=== PATIENT | female | born 1990 | race Caucasian/White ===

== ENCOUNTER 2017-10-27 17:35 | Emergency (ER) | payer BC ==
[2017-10-27 17:49] VITALS: BP 132/94
[2017-10-27] MEDS ORDERED: Ketorolac 60 MG/2 ML SDV IM ONE (18:21)
[2017-10-27] MEDS ORDERED: Orphenadrine 100 MG Tab.ER PO ONE (18:21)
--- NOTE | 2017-10-27 18:22 | EDM.PDOC ---
ED HPI GENERAL MEDICAL PROBLEM - General Chief Complaint: Headache Stated Complaint: Headache, neck pain, vision changes Time Seen by Provider: 10/27/17 18:00 Source of Information: Reports: Patient, RN Notes Reviewed History Limitations: Reports: No Limitations - History of Present Illness INITIAL COMMENTS - FREE TEXT/NARRATIVE: 27 year old female presents to the ED with complaints of headache and left sided neck pain for the past couple days. Pain does not improve with Tylenol or Advil. The pain starts in her neck and radiates along the right side of her head. She has no associated photophobia, phonophobia, nausea or vomiting. She has a history of cervical spine stenosis, diagnosed by MRI a few months ago. 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 She has an appointment with Dr. Andre at the end of November to establish care and discuss this. She reports intermittent black spots in her eyes that resolve on their own. She says she sometimes feels off balance and like her right leg is heavy. She is currently not experiencing these symptoms. NO numbness, tingling or weakness. No slurred speech or difficulty swallowing. She has no fever, chills, chest pain, shortness of breath, cough, nausea, vomiting, diarrhea, or abdominal pain. She just finished her LMP. She says her had a vasectomy and there is no chance of . She declines test. She initially presented to the walk-in clinic and was sent here. 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: Other (see below) Other 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: motrin and tylenol Right Headache Pain Score (Numeric/FACES): 5 - Related Data Allergies Allergy/AdvReac Type Severity Reaction Status Date / Time No Known Allergies Allergy Verified 01/13/17 13:28 Home Meds: Home Meds Naproxen 500 mg PO BID #30 tablet 10/27/17 [Rx] Orphenadrine [Norflex] 100 mg PO BID PRN #20 tab.er 10/27/17 [Rx] Past Medical History - Past Health History Medical/Surgical History: Denies Medical/Surgical History HEENT History: Reports: Other (See Below) Other HEENT History: right optic nerve droop Cardiovascular History: Reports: None Respiratory History: Reports: None Gastrointestinal History: Reports: None Genitourinary History: Reports: None 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: , 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 Musculoskeletal History: Reports: None, Other (See Below) Other Musculoskeletal History: spinal stenosis Neurological History: Reports: Other (See Below) Other Neuro History: headaches Psychiatric History: Reports: Anxiety Endocrine/Metabolic History: Reports: None Hematologic History: Reports: None Immunologic History: Reports: None Oncologic (Cancer) History: Reports: None Dermatologic History: Reports: None - Past Surgical History Head Surgeries/Procedures: Reports: None HEENT Surgical History: Reports: Oral Surgery Social & Family History - Family History Family Medical History: Noncontributory - Tobacco Use Smoking Status *Q: Never Smoker Second Hand Smoke Exposure: No - Caffeine Use Caffeine Use: Reports: Coffee, Soda - Alcohol Use Days Per Week of Alcohol Use: 0 - Recreational Drug Use Recreational Drug Use: No Drug Use in Last 12 Months: No ED ROS GENERAL - Review of Systems Review Of Systems: See Below Constitutional: Reports: No Symptoms. Denies: Fever, Chills, Diaphoresis HEENT: Reports: Vision Change. Denies: Ear Pain, Eye Pain, Throat Pain, Vertigo Respiratory: Reports: No Symptoms. Denies: Shortness of Breath Cardiovascular: Reports: No Symptoms. Denies: Chest Pain GI/Abdominal: Reports: No Symptoms. Denies: Abdominal Pain, Diarrhea, Nausea, Vomiting Musculoskeletal: Reports: Neck Pain Neurological: Reports: Headache. Denies: Confusion, Dizziness, Numbness, Tingling, Trouble Speaking, Difficulty Walking, Weakness - Physical Exam Exam: See Below Exam Limited By: No Limitations General Appearance: Alert, WD/WN, No Apparent Distress Eye Exam: Bilateral Eye: EOMI, PERRL Throat/Mouth: Normal Inspection, Normal Oropharynx Head Exam: Atraumatic, Normocephalic. No: Scalp Tenderness Neck: Normal Inspection, Supple, Non-Tender, Full Range of Motion. No: Lymphadenopathy (L), Lymphadenopathy (R), Tender Lateral, Tender Midline, Thyromegaly Respiratory/Chest: No Respiratory Distress, Lungs Clear Cardiovascular: Regular Rate, Rhythm GI/Abdominal: Normal Bowel Sounds, Soft, Non-Tender Neuro Exam (Abbreviated): Alert, Oriented, CN II-XII Intact, Normal Cognition, Normal Gait, No Motor/Sensory Deficits, Other (cerebellar testing intact. ambulates with steady gait. Upper and lower extremity strengths are equal bilaterally. PERRLA. ) Skin Exam: Warm, Dry, Intact Course - Vital Signs Last Recorded V/S: Last Vital Signs Temp 99.2 F 10/27/17 17:47 Pulse 117 H 10/27/17 17:47 Resp 20 10/27/17 17:47 BP 132/94 H 10/27/17 17:47 Pulse Ox 100 10/27/17 17:47 - Orders/Labs/Meds Orders: Active Orders 24 hr Category Date Time Status Head wo Cont [CT] Stat Exams 10/27/17 18:19 Stop Req Meds: Medications Discontinued Medications Generic Name Dose Route Start Last Admin Trade Name Freq PRN Reason Stop Dose Admin Ketorolac Tromethamine 60 mg 10/27/17 18:21 10/27/17 18:27 Toradol IM 10/27/17 18:22 60 mg ONETIME ONE Administration Orphenadrine Citrate 100 mg 10/27/17 18:21 10/27/17 18:28 Norflex PO 10/27/17 18:22 100 mg ONETIME ONE Administration - Re-Assessments/Exams Free Text/Narrative Re-Assessment/Exam: Initial plan was to order CT of head. However, after discussion with Dr. Pickard, he does not feel a CT is indicated and will not be beneficial considering the patient's normal neuro exam. He recommends outpatient MRI as well. Her symptoms are not acute. She has been experiencing these symptoms for a few months. Patient was notified of recommendations and is comfortable with this. I am going to refer her to our medical clinic as we have same and next day appointments available with our PCPs. She is agreeable to this plan and agrees to f/u for MRI and further workup of her symptoms. Will treat for tension headache with Norflex and Naproxyn. Educated on return precautions. Discharge instructions as documented. Departure - Departure Time of Disposition: 18:43 Disposition: Home, Self-Care 01 Condition: Good Clinical Impression: Tension headache - Discharge Information Prescriptions: Naproxen 500 mg PO BID #30 tablet Orphenadrine [Norflex] 100 mg PO BID PRN #20 tab.er PRN Reason: Headache Instructions: Tension Headache, [id number] Forms: ED Department Discharge Additional Instructions: Follow-up in our clinic to establish care and discuss outpatient MRI. Call [phone] to schedule Return to ER with new or worsening symptoms Naproxyn 500mg twice a day with food as needed for headache Norflex 100mg every 12 hours as needed for neck discomfort and tension type headache Follow-up with your eye doctor for a recheck - My Orders Last 24 Hours: My Active Orders 10/27/17 18:19 Head wo Cont [CT] Stat - Assessment/Plan Last 24 Hours: My Active Orders 10/27/17 18:19 Head wo Cont [CT] Stat
== END 2017-10-27 18:53 | disposition home or self-care (01) ==
LOC: JD.ED 17:35 → SUPCPDRO 17:35 → JD.ED 18:53
DX: G44.209 Tension-type headache, unspecified, not intractable (principal)
CPT/HCPCS: 96372; 99284; A9270; J1885

== ENCOUNTER 2018-12-06 08:06 | Day surgery (SDC) | payer BC ==
[2018-12-06] MEDS ORDERED: Sodium Chloride 0.9% 10 ML Syringe FLUSH PRN (08:20)
[2018-12-06] MEDS ORDERED: Lidocaine 1%/Sod Bicarbonate in NS 8.4% 1 ML Syringe IDERM PRN (08:20)
[2018-12-06] MEDS ORDERED: Lactated Ringers 1,000 ML IV SCH (08:30)
[2018-12-06] MEDS ORDERED: Lactated Ringers 1,000 ML ONE (09:12)
[2018-12-06] MEDS ORDERED: Lidocaine 1% 4 ML ONE (09:12)
[2018-12-06] MEDS ORDERED: Rocuronium 50 MG/5 ML Vial ONE (09:12)
[2018-12-06] MEDS ORDERED: Ondansetron 4 MG/2 ML SDV ONE (09:12)
[2018-12-06] MEDS ORDERED: Propofol 200 MG/20 ML SDV ONE (09:12)
[2018-12-06] MEDS ORDERED: fentaNYL 250 MCG/5 ML SDV ONE (09:12)
[2018-12-06] MEDS ORDERED: Midazolam 1 MG/ML 2 ML SDV ONE (09:12)
[2018-12-06] MEDS ORDERED: Bupivacaine 0.5% 30 ML SDV ONE (09:20)
[2018-12-06] MEDS ORDERED: Lidocaine 1% with EPINEPHrine 1:100,000 20 ML MDV ONE (09:20)
[2018-12-06] MEDS ORDERED: Scopolamine 1.5 MG Transdermal Patch TRDERM SCH (09:30)
--- NOTE | 2018-12-06 09:39 | PCM.PREANE ---
Preanesthetic Assessment - Anesthesia/Transfusion/Family Hx Anesthesia History: Prior Anesthesia Without Reaction Type of Anesthesia Reaction: Excessive Nausea/Vomiting Family History of Anesthesia Reaction: No Transfusion History: No Prior Transfusion(s) Intubation History: Unknown - Review of Systems General: No Symptoms Pulmonary: No Symptoms Cardiovascular: Palpitations Gastrointestinal: No Symptoms Neurological: No Symptoms - Physical Assessment NPO Status Date: 12/05/18 NPO Status Time: 22:00 Pulse: 106 O2 Sat by Pulse Oximetry: 98 Respiratory Rate: 16 Blood Pressure: 142/82 Temperature: 37.7 C Vital Signs: Last Vital Signs Temp 37.9 C 12/06/18 08:45 Pulse 106 H 12/06/18 08:45 Resp 16 12/06/18 08:45 BP 142/82 H 12/06/18 08:45 Pulse Ox 98 12/06/18 08:45 Height: 1.6 m Weight: 92.079 kg ASA Class: 2 Mental Status: Alert & Oriented x3 Airway Class: Mallampati = 2 Dentition: Reports: Normal Dentition, Caries Thyro-Mental Finger Breadths: 3 Mouth Opening Finger Breadths: 3 ROM/Head Extension: Full Lungs: Clear to Auscultation, Normal Respiratory Effort Cardiovascular: Regular Rate, Regular Rhythm, No Murmurs - Lab Values: Laboratory Last Values Urine HCG, Qual Negative (NEGATIVE) 12/06/18 08:37 Lab values reviewed and noted and within acceptable ranges to proceed with scheduled procedure. - Allergies Allergies/Adverse Reactions: Allergies Allergy/AdvReac Type Severity Reaction Status Date / Time No Known Allergies Allergy Verified 10/29/18 02:56 - Anesthesia Plan Pre-Op Medication Ordered: None - Acknowledgements Anesthesia Type Planned: General Anesthesia Pt an Appropriate Candidate for the Planned Anesthesia: Yes Alternatives and Risks of Anesthesia Discussed w Pt/Guardian: Yes Pt/Guardian Understands and Agrees with Anesthesia Plan: Yes PreAnesthesia Questionnaire - Past Health History Medical/Surgical History: Denies Medical/Surgical History HEENT History: Reports: Other (See Below) Other HEENT History: Optic nerve drusen Cardiovascular History: Reports: None Respiratory History: Reports: None Gastrointestinal History: Reports: Other (See Below) Other Gastrointestinal History: Abdominal pain, elevated liver enzymes Genitourinary History: Reports: None 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: , 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 , Other (See Below) Other OB/BYN History: Spontaneous vaginal delivery Musculoskeletal History: Reports: Other (See Below) Other Musculoskeletal History: Neck pain, bilateral carpal tunnel syndrome Neurological History: Reports: Headaches, Chronic Other Neuro History: headaches Psychiatric History: Reports: Anxiety Endocrine/Metabolic History: Reports: None Hematologic History: Reports: None Immunologic History: Reports: None Oncologic (Cancer) History: Reports: None Dermatologic History: Reports: None - Infectious Disease History Infectious Disease History: Reports: None - Past Surgical History Head Surgeries/Procedures: Reports: None HEENT Surgical History: Reports: Tonsillectomy Cardiovascular Surgical History: Reports: None Respiratory Surgical History: Reports: None GI Surgical History: Reports: None Female Surgical History: Reports: None Endocrine Surgical History: Reports: None Neurological Surgical History: Reports: None Musculoskeletal Surgical History: Reports: Other (See Below) Other Musculoskeletal Surgeries/Procedures:: Right knee surgery, bilateral carpal tunnel repair Oncologic Surgical History: Reports: None Dermatological Surgical History: Reports: None - SUBSTANCE USE Smoking Status *Q: Never Smoker Recreational Drug Use History: No - HOME MEDS Home Medications: Home Meds . [No Known Home Meds] 10/29/18 [History] - CURRENT (IN HOUSE) MEDS Current Meds: Current Medications Lactated Ringer's (Ringers, Lactated) 1,000 mls @ 125 mls/hr IV ASDIRECTED [facility] Stop: 12/06/18 23:00 Last Admin: 12/06/18 09:05 Dose: 125 mls/hr Ampicillin Sodium/Sulbactam (Sodium 3 gm/ Sodium Chloride) 100 mls @ 200 mls/ hr IV ONETIME ONE Stop: 12/06/18 10:14 Lidocaine/Sodium Bicarbonate (Buffered Lidocaine 1% In Ns 8.4%) 0.25 ml IDERM ONETIME PRN PRN Reason: Prior to IV Start Stop: 12/06/18 18:00 Last Admin: 12/06/18 09:05 Dose: 0.25 ml Scopolamine (Transderm-Scop) 1.5 mg TRDERM ONETIME [facility] Stop: 12/06/18 16:00 Last Admin: 12/06/18 09:30 Dose: 1.5 mg Sodium Chloride (Saline Flush) 10 ml FLUSH ASDIRECTED PRN PRN Reason: Keep Vein Open Stop: 12/06/18 18:00 Discontinued Medications Bupivacaine HCl (Marcaine 0.5%) Confirm Administered Dose 30 ml .ROUTE .ST-MED ONE Stop: 12/06/18 09:21 Fentanyl (Sublimaze) Confirm Administered Dose 250 mcg .ROUTE .[facility]-MED ONE Stop: 12/06/18 09:13 Lidocaine HCl (Xylocaine-Mpf 1%) Confirm Administered Dose 4 mls @ as directed .ROUTE .[facility]-MED ONE Stop: 12/06/18 09:13 Lactated Ringer's (Ringers, Lactated) Confirm Administered Dose 1,000 mls @ as directed .ROUTE .[facility]-MED ONE Stop: 12/06/18 09:13 Lidocaine/Epinephrine (Xylocaine 1% With Epinephrine 1:100,000) Confirm Administered Dose 20 ml .ROUTE .[facility] ONE Stop: 12/06/18 09:21 Midazolam HCl (Versed 1 Mg/Ml) Confirm Administered Dose 2 mg .ROUTE .ST-MED ONE Stop: 12/06/18 09:13 Ondansetron HCl (Zofran) Confirm Administered Dose 4 mg .ROUTE .[facility]-MED ONE Stop: 12/06/18 09:13 Propofol (Diprivan 20 Ml) Confirm Administered Dose 400 mg .ROUTE .ST-MED ONE Stop: 12/06/18 09:13 Rocuronium [place] (Zemuron) Confirm Administered Dose 50 mg .ROUTE .ST-MED ONE Stop: 12/06/18 09:13
[2018-12-06] MEDS ORDERED: Ampicillin/Sulbactam Na 3 GM in Sodium Chloride 0.9% 100 ML IV ONE (09:45)
[2018-12-06] MEDS ORDERED: ceFAZolin 1 GM Vial ONE ×2 (09:56)
[2018-12-06] MEDS ORDERED: diphenhydrAMINE 50 MG/ML SDV ONE (09:57)
[2018-12-06] MEDS ORDERED: Ketorolac 30 MG/ML SDV ONE (09:58)
[2018-12-06] MEDS ORDERED: Dexamethasone 4 MG/ML 5 ML MDV ONE (09:58)
[2018-12-06] MEDS ORDERED: HYDROmorphone 0.5 MG/0.5 ML Syringe ONE (10:07)
[2018-12-06] MEDS ORDERED: Sodium Chloride 0.9% 50 ML SDV ONE ×2 (10:13→10:25)
[2018-12-06] MEDS ORDERED: Iopamidol 612 MG/ML 50 ML SDV ONE (10:13)
[2018-12-06] MEDS ORDERED: Metoclopramide 10 MG/2 ML SDV IV PRN (10:32)
[2018-12-06] MEDS ORDERED: diphenhydrAMINE 50 MG/ML SDV IVPUSH PRN (10:32)
[2018-12-06] MEDS ORDERED: fentaNYL 100 MCG/2 ML SDV IVPUSH PRN (10:32)
[2018-12-06] MEDS ORDERED: HYDROmorphone 0.5 MG/0.5 ML Syringe IVPUSH PRN (10:32)
[2018-12-06] MEDS ORDERED: Haloperidol Lactate 5 MG/ML SDV IVPUSH PRN (10:32)
[2018-12-06] MEDS ORDERED: Ondansetron 4 MG/2 ML SDV IVPUSH PRN (10:32)
[2018-12-06] MEDS ORDERED: fentaNYL 100 MCG/2 ML SDV ONE (10:53)
--- NOTE | 2018-12-06 11:42 | PCM.POSTAN ---
POST ANESTHESIA ASSESSMENT - MENTAL STATUS Mental Status: Alert - VITAL SIGNS Pulse Rate: 133 SaO2: 100 Resp Rate: 18 Blood Pressure: 132/79 Temperature: 37.3 C - RESPIRATORY Respiratory Status: Respiratory Rate WNL, Airway Patent, O2 Saturation Stable, Supplemental Oxygen - CARDIOVASCULAR CV Status: Pulse Rate WNL, Blood Pressure Stable - GASTROINTESTINAL GI Status: No Symptoms - POST OP HYDRATION Hydration Status: Adequate & Stable
--- NOTE | 2018-12-06 11:45 | PCM.OPNOTE ---
- General Post-Op/Procedure Note Date of Surgery/Procedure: 12/06/18 Operative Procedure(s): laparoscopic cholecystectomy Findings: Critical view obtained. Pre Op Diagnosis: symptomatic cholelithiasis Post-Op Diagnosis: Same Anesthesia Technique: General ET Tube Primary Surgeon: Dominic Correa Anesthesia Provider: Alyssa Burns Pathology: gallbladder Fluid Replacement, Intraop: 800 (crystalloid) EBL in mLs: 5 Complications: None Condition: Good Free Text/Narrative:: Indications for surgery: The patient is a 28 yo female who presents with symptomatic cholelithiasis. She was consented for laparoscopic cholecystectomy, possible open, possible intraoperative cholangiogram. Indications, risks, and benefits were discussed with the patient in detail. Description of procedure: After surgical consent was verified, the patient was brought to the main OR. Anesthesia performed general endotracheal intubation without complications. Appropriate padding and straps were placed. SCD's were on and functioning. Perioperative antibiotic (Unasyn IV) was administered. A surgical time-out was performed to verify proper patient, proper site, and proper procedure. Local anesthetic (1:1 solution of 1% lidocaine with epinephrine and 0.5% bupivacaine) was injected at the supraumbilical region. A 10 mm curvilinear incision was made, through which a Veress needle was inserted, and the abdomen was insuffulated to 15 mmHg. A 5 mm trocar was inserted using the Optiview technique. A laparoscope was inserted, and there was no evidence of intra- abdominal injury from trocar placement. Additional trocars were placed: a 12 mm trocar at the epigastric region, and two 5-mm trocars in the RUQ. The gallbladder was identified. The fundus of the gallbladder was grasped and elevated over the liver. The gallbladder infundibulum was then grasped and lateral traction was applied, allowing exposure of Calot's triangle. Dissection around Calot's triangle led to exposure of the critical view, with two structures entering the gallbladder. The lower 1/3 of the gallbladder was dissected off the liver bed, with the liver visible behind. The cystic artery was wrapped around the cystic duct and had to be carefully dissected off the duct. The cystic artery was doubly clipped. A cystic ductotomy was performed and multiple attempts were made to thread a cholangiocatheter, but this was not successful. There was a small amount of gross bile spillage, which was suctioned out. Attempt at intraoperative cholangiogram was aborted. The cystic duct was doubly clipped and divided, leaving two clips on the "stay" side. The gallbaldder was dissected off the gallbladder fossa, placed in an Endocatch bag, and removed through the 12 mm trocar site. Hemostasis was ensured. The 12 mm trocar site was then closed with an 0-Vicryl suture on a transfascial suture passer. All trocars were removed under direct visualization, and the abdomen was allowed to desufflate. All skin sites were closed with 4-0 Monocryl and covered with Dermabond. The patient tolerated the procedure well, was extubated, and transported to the PACU in stable condition. At the end of the case, all needle, instrument, and gauze counts were correct. I was present and scrubbed for the entirety of the case. oDminic Correa M.D., F.A.C.S. General Surgery Pager: [phone]
[2018-12-06] MEDS ORDERED: Acetaminophen/oxyCODONE 325-5 MG Tab PO PRN (11:49)
--- NOTE | 2018-12-06 14:00 | PCM48HPAN ---
Post Anesthesia Note - EVALUATION WITHIN 48HRS OF ANESTHETIC Vital Signs in Normal Range: Yes Patient Participated in Evaluation: Yes Respiratory Function Stable: Yes Airway Patent: Yes Cardiovascular Function Stable: Yes Hydration Status Stable: Yes Pain Control Satisfactory: Yes Nausea and Vomiting Control Satisfactory: Yes Mental Status Recovered: Yes
[2018-12-06 14:03] VITALS: BP 117/66
== END 2018-12-06 14:10 | disposition home or self-care (01) ==
LOC: JD.SDS 08:06
PROVIDERS: ATTEND Student in an Organized Health Care Education/Training Program
DX: K82.4 Cholesterolosis of gallbladder (principal); E66.9 Obesity, unspecified; Z68.37 Body mass index [BMI] 37.0-37.9, adult; F41.9 Anxiety disorder, unspecified
CPT/HCPCS: 47563; 81025; A9270; J0295; J1100; J1170; J1200; J1630; J1885; J2250; J2405; J2704; J3010; J3490; J7030; J7120; J0690; J2001; Q9967

== ENCOUNTER 2019-09-21 07:59 | Day surgery (SDC) | payer BC ==
[~2019-09-21 07:59] MED LIST: Lactated Ringers 1,000 ML IV SCH; Lidocaine 1%/Sod Bicarbonate in NS 8.4% 1 ML Syringe IDERM PRN; Sodium Chloride 0.9% 10 ML Syringe FLUSH PRN
[2019-09-21] MEDS ORDERED: fentaNYL 250 MCG/5 ML SDV ONE (08:20)
[2019-09-21] MEDS ORDERED: Ondansetron 4 MG/2 ML SDV ONE (08:20)
[2019-09-21] MEDS ORDERED: Lidocaine 1% 4 ML ONE (08:20)
[2019-09-21] MEDS ORDERED: Propofol 200 MG/20 ML SDV ONE ×2 (08:20→11:37)
[2019-09-21] MEDS ORDERED: Midazolam 1 MG/ML 2 ML SDV ONE (08:20)
[2019-09-21] MEDS ORDERED: Scopolamine 1.5 MG Transdermal Patch TOP SCH (08:22)
[2019-09-21] MEDS ORDERED: Sodium Chloride 0.9% 50 ML SDV ONE (08:42)
[2019-09-21] MEDS ORDERED: Lidocaine 1% with EPINEPHrine 1:100,000 20 ML MDV ONE (08:42)
--- NOTE | 2019-09-21 09:29 | PCM.PREANE ---
Preanesthetic Assessment - Procedure Proposed Procedure: subfacial mid urethral sling - Anesthesia/Transfusion/Family Hx Anesthesia History: Prior Anesthesia Without Reaction Family History of Anesthesia Reaction: No Transfusion History: No Prior Transfusion(s) Intubation History: Unknown - Review of Systems General: No Symptoms Pulmonary: No Symptoms Cardiovascular: No Symptoms Gastrointestinal: No Symptoms Neurological: No Symptoms Other: Reports: Liver Problems (due to gall stones- liver recovered) - Physical Assessment NPO Status Date: 09/20/19 (2) NPO Status Time: 20:00 Vital Signs: Last Vital Signs Temp 98.2 F 09/21/19 08:20 Pulse 92 09/21/19 08:20 Resp 16 09/21/19 08:20 BP 120/76 09/21/19 08:20 Pulse Ox 98 09/21/19 08:20 Height: 5 ft 3 in ASA Class: 2 Mental Status: Alert & Oriented x3 Airway Class: Mallampati = 1 Dentition: Reports: Normal Dentition Thyro-Mental Finger Breadths: 3 Mouth Opening Finger Breadths: 3 ROM/Head Extension: Full Lungs: Clear to Auscultation, Normal Respiratory Effort Cardiovascular: Regular Rate, Regular Rhythm - Lab Values: Laboratory Last Values WBC 6.81 K/mm3 (3.98-10.04) 09/19/19 07:50 RBC 4.70 M/mm3 (3.98-5.22) 09/19/19 07:50 Hgb 13.8 gm/dl (11.2-15.7) 09/19/19 07:50 Hct 41.9 % (34.1-44.9) 09/19/19 07:50 MCV 89.1 fl (79.4-94.8) 09/19/19 07:50 MCH 29.4 pg (25.6-32.2) 09/19/19 07:50 MCHC 32.9 g/dl (32.2-35.5) 09/19/19 07:50 RDW Std Deviation 41.5 fL (36.4-46.3) 09/19/19 07:50 Plt Count 226 K/mm3 (182-369) 09/19/19 07:50 MPV 9.9 fl (9.4-12.3) 09/19/19 07:50 Neut % (Auto) 58.4 % (34.0-71.1) 09/19/19 07:50 Lymph % (Auto) 31.9 % (19.3-51.7) 09/19/19 07:50 [place] % (Auto) 7.6 % (4.7-12.5) 09/19/19 07:50 Eos % (Auto) 1.6 (0.7-5.8) 09/19/19 07:50 Baso % (Auto) 0.4 % (0.1-1.2) 09/19/19 07:50 Neut # (Auto) 3.97 K/mm3 (1.56-6.13) 09/19/19 07:50 Lymph # (Auto) 2.17 K/mm3 (1.18-3.74) 09/19/19 07:50 [place] # (Auto) 0.52 K/mm3 (0.24-0.36) H 09/19/19 07:50 Eos # (Auto) 0.11 K/mm3 (0.04-0.36) 09/19/19 07:50 Baso # (Auto) 0.03 K/mm3 (0.01-0.08) 09/19/19 07:50 Urine Color Yellow (Yellow) 09/19/19 07:50 Urine Appearance Clear (Clear) 09/19/19 07:50 Urine pH 5.5 (5.0-8.0) 09/19/19 07:50 Ur Specific [place] > or = 1.030 (1.005-1.030) 09/19/19 07:50 Urine Protein Negative (Negative) 09/19/19 07:50 Urine Glucose (UA) Negative (Negative) 09/19/19 07:50 Urine Ketones Negative (Negative) 09/19/19 07:50 Urine Occult Blood Negative (Negative) 09/19/19 07:50 Urine Nitrite Negative (Negative) 09/19/19 07:50 Urine Bilirubin Negative (Negative) 09/19/19 07:50 Urine Urobilinogen 0.2 (0.2-1.0) 09/19/19 07:50 Ur Leukocyte Esterase Negative (Negative) 09/19/19 07:50 Urine HCG, Qual Negative (NEGATIVE) 09/19/19 07:50 - Allergies Allergies/Adverse Reactions: Allergies Allergy/AdvReac Type Severity Reaction Status Date / Time No Known Allergies Allergy Verified 09/20/19 11:36 - Blood Blood Available: No - Acknowledgements Anesthesia Type Planned: General Anesthesia Pt an Appropriate Candidate for the Planned Anesthesia: Yes Alternatives and Risks of Anesthesia Discussed w Pt/Guardian: Yes Pt/Guardian Understands and Agrees with Anesthesia Plan: Yes PreAnesthesia Questionnaire - Past Health History Medical/Surgical History: Denies Medical/Surgical History HEENT History: Reports: Other (See Below) Other HEENT History: Optic nerve drusen Cardiovascular History: Reports: None Respiratory History: Reports: None Gastrointestinal History: Reports: Cholelithiasis, Other (See Below) Other Gastrointestinal History: Abdominal pain, elevated liver enzymes, diarrhea Genitourinary History: Reports: None 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: , 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 , Other (See Below) Other OB/BYN History: Spontaneous vaginal delivery Musculoskeletal History: Reports: Other (See Below) Other Musculoskeletal History: Neck pain, bilateral carpal tunnel syndrome Neurological History: Reports: Headaches, Chronic Other Neuro History: headaches Psychiatric History: Reports: Anxiety Endocrine/Metabolic History: Reports: None Hematologic History: Reports: None Immunologic History: Reports: None Oncologic (Cancer) History: Reports: None Dermatologic History: Reports: None - Infectious Disease History Infectious Disease History: Reports: None - Past Surgical History Head Surgeries/Procedures: Reports: None HEENT Surgical History: Reports: Tonsillectomy Cardiovascular Surgical History: Reports: None Respiratory Surgical History: Reports: None GI Surgical History: Reports: None, Cholecystectomy Female Surgical History: Reports: None Endocrine Surgical History: Reports: None Neurological Surgical History: Reports: None Musculoskeletal Surgical History: Reports: Other (See Below) Other Musculoskeletal Surgeries/Procedures:: Right knee surgery, bilateral carpal tunnel repair Oncologic Surgical History: Reports: None Dermatological Surgical History: Reports: None - SUBSTANCE USE Smoking Status *Q: Never Smoker Tobacco Use Within Last Twelve Months: No Second Hand Smoke Exposure: No Days Per Week of Alcohol Use: 0 Recreational Drug Use History: No - HOME MEDS Home Medications: Home Meds . [No Known Home Meds] 09/20/19 [History] - CURRENT (IN HOUSE) MEDS Current Meds: Current Medications Lactated Ringer's (Ringers, Lactated) 1,000 mls @ 125 mls/hr IV ASDIRECTED [facility] Stop: 09/21/19 23:00 Lidocaine/Sodium Bicarbonate (Buffered Lidocaine 1% In Ns 8.4%) 0.25 ml IDERM ONETIME PRN PRN Reason: Prior to IV Start Stop: 09/21/19 18:00 Scopolamine (Transderm-Scop) 1.5 mg TOP ONETIME SHARON Stop: 09/21/19 12:00 Last Admin: 09/21/19 08:36 Dose: 1.5 mg Sodium Chloride (Saline Flush) 10 ml FLUSH ASDIRECTED PRN PRN Reason: Keep Vein Open Stop: 09/21/19 18:00 Discontinued Medications Fentanyl (Sublimaze) Confirm Administered Dose 250 mcg .ROUTE .STK-MED ONE Stop: 09/21/19 08:21 Lidocaine HCl (Xylocaine-Mpf 1%) Confirm Administered Dose 4 mls @ as directed .ROUTE .STK-MED ONE Stop: 09/21/19 08:21 Lidocaine/Epinephrine (Xylocaine 1% With Epinephrine 1:100,000) Confirm Administered Dose 20 ml .ROUTE .STK-MED ONE Stop: 09/21/19 08:43 Midazolam HCl (Versed 1 Mg/Ml) Confirm Administered Dose 2 mg .ROUTE .STK-MED ONE Stop: 09/21/19 08:21 Ondansetron HCl (Zofran) Confirm Administered Dose 4 mg .ROUTE .STK-MED ONE Stop: 09/21/19 08:21 Propofol (Diprivan 20 Ml) Confirm Administered Dose 200 mg .ROUTE .STK-MED ONE Stop: 09/21/19 08:21 Sodium Chloride (Normal Saline) Confirm Administered Dose 50 ml .ROUTE .STK-MED ONE Stop: 09/21/19 08:43
[2019-09-21] MEDS ORDERED: ceFAZolin 1 GM Vial ONE (09:32)
[2019-09-21] MEDS ORDERED: Dexamethasone 4 MG/ML 5 ML MDV ONE (10:24)
[2019-09-21] MEDS ORDERED: Ketorolac 30 MG/ML SDV ONE (10:24)
[2019-09-21] MEDS ORDERED: HYDROmorphone 0.5 MG/0.5 ML Syringe IVPUSH PRN (10:26)
[2019-09-21] MEDS ORDERED: Ondansetron 4 MG/2 ML SDV IVPUSH PRN (10:26)
[2019-09-21] MEDS ORDERED: fentaNYL 100 MCG/2 ML SDV IVPUSH PRN (10:26)
--- NOTE | 2019-09-21 11:00 | PCM.POSTAN ---
POST ANESTHESIA ASSESSMENT - MENTAL STATUS Mental Status: Alert, Oriented - VITAL SIGNS Vital Signs: Last Vital Signs Temp 98.2 F 09/21/19 08:20 Pulse 92 09/21/19 08:20 Resp 16 09/21/19 08:20 BP 120/76 09/21/19 08:20 Pulse Ox 98 09/21/19 08:20 98% 98.5 108/72 128 18 - RESPIRATORY Respiratory Status: Respiratory Rate WNL, Airway Patent, O2 Saturation Stable, Supplemental Oxygen - CARDIOVASCULAR CV Status: Pulse Rate WNL, Blood Pressure Stable - GASTROINTESTINAL GI Status: No Symptoms - PAIN Pain Score: 0 - POST OP HYDRATION Hydration Status: Adequate & Stable
[2019-09-21] MEDS ORDERED: Ketamine 500 mg/10 ML MDV ONE (11:15)
[2019-09-21] MEDS ORDERED: Ibuprofen 600 MG Tab PO PRN (11:26)
--- NOTE | 2019-09-21 11:32 | PCM.OPNOTE ---
- General Post-Op/Procedure Note Date of Surgery/Procedure: 09/21/19 Operative Procedure(s): Subfascial mid-urethral sling Findings: Grade 1 cystocele. Anatomy otherwise unremarkable. Good estrogenization noted. Pre Op Diagnosis: Stress urinary incontinence Post-Op Diagnosis: Same Anesthesia Technique: General LMA Other Anesthesia Type: Lidocaine quarter percent with epinephrineapproximately 10 mL total Primary Surgeon: Mauri Gonzalez Anesthesia Provider: Raul Brewer Pan Helper: Rodriguez Pagan Pan Helper: Dilip Packer Fluid Replacement, Intraop: 800 EBL in mLs: 25 Complications: None Condition: Good Free Text/Narrative:: Duration: 18 minutes Procedure: The patient was taken the operating room and placed in supine position on the operating table. She was adequately consented for the procedure. She was given 2 g of Ancef preoperatively for infection prophylaxis and had sequential compression stockings in place for DVT prophylaxis. 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 She was given general endotracheal anesthesia. She was placed in the dorsal lithotomy position. Her bladder was again drained with a red rubber catheter. The epithelium overlying the urethra was grasped approximately 1 cm from the urethral meatus and approximately 2 cm cephalad from there with Allis clamps. The area of the skin overlying the medial aspect of the obturator foramen on each side just posterior to the origin the abductor longus muscle was marked with a marking pen. These 2 areas and the sub-fascial layer of the vaginal were then infiltrated with lidocaine quarter percent with epinephrine total of approximately 10 mL was used. incisions made in the epithelium overlying the urethra and 2 small stab wounds 3 mm in length were made in the 2 areas of the panty line of the patient. The subfascial planes were adequately dissected bilaterally to allow placement of the mesh. The helical adapter was then placed through the obturator on patient's left side, then brought out through the vaginal subfascial plane. Mesh was attached to it and then was pulled back through the obturator foramen. Same was done on the right side. Mesh was then snugged up to 8 Dilator 15 mm in diameter which was was used as a spacer to place the mesh in a tension-free position. At this point the mesh was cut off at the skin surface and the dilator was removed. The midline epithelium was closed with a short running suture of 3-0 Monocryl. Skin incisions were closed with Dermabond skin glue. These bladder was filled with approximately 240 cc of normal saline to facilitate voiding and therefore discharged home. The patient was returned to supine position, awakened from general endotracheal anesthesia and was discharged from operating room in good condition
--- NOTE | 2019-09-21 12:08 | PCM48HPAN ---
Post Anesthesia Note - EVALUATION WITHIN 48HRS OF ANESTHETIC Vital Signs in Normal Range: Yes Patient Participated in Evaluation: Yes Respiratory Function Stable: Yes Airway Patent: Yes Cardiovascular Function Stable: Yes Hydration Status Stable: Yes Pain Control Satisfactory: Yes Nausea and Vomiting Control Satisfactory: Yes Mental Status Recovered: Yes (no complaints) Vital Signs: Last Vital Signs Temp 97.9 F 09/21/19 11:49 Pulse 105 H 09/21/19 11:49 Resp 18 09/21/19 11:49 BP 113/74 09/21/19 11:49 Pulse Ox 98 09/21/19 11:49
[2019-09-21 13:40] VITALS: BP 109/54; PULSE 88
== END 2019-09-21 12:25 | disposition home or self-care (01) ==
LOC: JD.SDS 07:59
PROVIDERS: ATTEND Obstetrics & Gynecology
DX: N39.3 Stress incontinence (female) (male) (principal); N81.10 Cystocele, unspecified; N92.1 Excessive and frequent menstruation with irregular cycle; N94.6 Dysmenorrhea, unspecified; E66.9 Obesity, unspecified; F41.9 Anxiety disorder, unspecified; R74.8 Abnormal levels of other serum enzymes; H47.329 Drusen of optic disc, unspecified eye; Z68.38 Body mass index [BMI] 38.0-38.9, adult
CPT/HCPCS: 36415; 57288; 81003; 81025; 85025; A9270; J0690; J1100; J1885; J2001; J2250; J2405; J2704; J3010; J7120; 00860

== ENCOUNTER 2022-12-27 19:46 | Emergency (ER) | payer OTHER ==
[2022-12-27 21:28] VITALS: BP 137/87; PULSE 89
== END 2022-12-27 21:29 | disposition home or self-care (01) ==
LOC: JD.ED 19:46
DX: S93.401A Sprain of unspecified ligament of right ankle, initial encounter (principal); W01.0XXA Fall on same level from slipping, tripping and stumbling without subsequent striking against object, initial encounter
CPT/HCPCS: 73590-26-RT; 73590-RT; 73610-26-RT; 73610-RT; 99283